=== PATIENT | male | born 1975 | race Caucasian/White ===

== ENCOUNTER 2017-04-10 20:07 | Emergency (ER) | payer OTHER ==
[2017-04-10 21:10] VITALS: RESP 16; TEMP 98.4; O2SAT 100
--- NOTE | 2017-04-10 21:44 | ED PDOC ---
HPI: General Adult Time Seen by Provider: 04/10/17 21:16 Chief Complaint (Nursing): Dizziness/Lightheaded Chief Complaint (Provider): Lightheadedness History Per: Patient History/Exam Limitations: no limitations Onset/Duration Of Symptoms: Hrs (3) Have you had recent travel within the past 21 days to any of the following countries: [place], [place], [place] or [place]?: No Additional Complaint(s): Pt reports generalized weakness, lightheadedness, cold feeling in both hands and feet X 3 hours, associated with nausea. Pt was cooking when symptoms began , no sick contacts at home. Denies fever, CP, SOB, vomiting, abdominal pain, focal weakness, paresthesias. Past Medical History Reviewed: Nursing Documentation, Vital Signs Vital Signs: Last Vital Signs Temp 98.4 F 04/10/17 21:07 Pulse 67 04/10/17 22:58 Resp 16 04/10/17 22:58 BP 123/93 H 04/10/17 22:58 Pulse Ox 100 04/13/17 08:46 - Medical History PMH: No Chronic Diseases - Family History Family History: States: Unknown Family Hx - Living Arrangements Living Arrangements: With Family - Social History Current smoker - smoking cessation education provided: No Alcohol: > 2 Drinks/Day - Home Medications Home Medications: Ambulatory Orders Medication Instructions Recorded Naproxen [Naprosyn] 500 mg PO BID PRN #15 tablet 04/11/17 - Allergies Allergies/Adverse Reactions: Allergies Allergy/AdvReac Type Severity Reaction Status Date / Time No Known Allergies Allergy Verified 04/10/17 21:06 Review of Systems Constitutional: Positive for: Weakness (Generalized). Negative for: Fever, Chills Eyes: Negative for: Vision Change Cardiovascular: Negative for: Chest Pain, Palpitations Respiratory: Negative for: Cough, Shortness of Breath Gastrointestinal: Positive for: Nausea. Negative for: Vomiting, Abdominal Pain , Diarrhea Genitourinary Male: Negative for: Dysuria, Hematuria Skin: Negative for: Rash, Lesions Neurological: Positive for: Dizziness. Negative for: Weakness (Focal), Numbness , Incoordination, Change in Speech, Confusion, Seizures, Altered Mental Status, Headache Physical Exam - Reviewed Nursing Documentation Reviewed: Yes Vital Signs Reviewed: Yes - Physical Exam Appears: Positive for: Well, No Acute Distress Head Exam: Positive for: ATRAUMATIC, NORMAL INSPECTION Skin: Positive for: Normal Color, Warm, Dry Eye Exam: Positive for: Normal appearance, EOMI, PERRL Cardiovascular/Chest: Positive for: Regular Rate, Rhythm Respiratory: Positive for: Normal Breath Sounds. 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 Negative for: Motor/Sensory Deficits, Aphasia, Facial Droop - Laboratory Results Result Diagrams: 04/10/17 22:46 04/10/17 22:46 - ECG Interpretation Of ECG: NSR @ 64, early repolarization. O2 Sat by Pulse Oximetry: 100 Pulse Ox Interpretation: Normal - Progress Re-evaluation Time: 00:07 Condition: Improved Medical Decision Making Medical Decision Makin yo male with lightheadedness and generalized weakness. - labs - EKG - IVF - Zofran Accession No. 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 no. Patient Name: ALTHEA GONZALEZ Pt. Address: [facility] #: [id number] Ordering Dr: Carmela ORTEGA,Kaleigh Weinstein Pt Phone: Order Location: [facility] : 1975 Male Age: 41 Order #: [id number] Reason for exam: Lightheadedness CT Scan HEAD W/O CONTRAST Exam Date: 04/10/17 This imaging exam was performed at [facility] EXAM: CT Head Without Intravenous Contrast CLINICAL HISTORY: 41 years old, male; Signs and symptoms; Dizziness; Additional info: Lightheadedness. Sent phy. Doc. TECHNIQUE: Axial computed tomography images of the head/brain without intravenous contrast. All CT scans at this facility use one or more dose reduction techniques, viz.: automated exposure control; ma/kV adjustment per patient size (including targeted exams where dose is matched to indication; i.e. head); or iterative reconstruction technique. Coronal and sagittal reformatted images were created and reviewed. COMPARISON: No relevant prior studies available. FINDINGS: Brain: Unremarkable. No hemorrhage. No significant white matter disease. No edema. Ventricles: Unremarkable. No ventriculomegaly. Bones/joints: Unremarkable. No acute fracture. Soft tissues: Unremarkable. Sinuses: Unremarkable as visualized. No acute sinusitis. Mastoid air cells: Unremarkable as visualized. No mastoid effusion. IMPRESSION: No evidence of an acute intracranial abnormality. Dictated By: April Cannon MD Dictated Date/Time: 04/10/172307 Signed By: April Lopez MD Date Signed: 2307 Transcribed By: KHUSHI Transcribe Date/Time : 04/10/172307 JH/TAWNYA REPEAT BP: 123/93, pt feels better. Disposition - Clinical Impression Clinical Impression: Lightheadedness - Disposition Referrals: Dequan Beckman MD [Staff Provider] - [facility] [Outside] Disposition: Routine/Home Disposition Time: 00:07 Condition: IMPROVED Additional Instructions: FOLLOW-UP WITH PMD WITHIN 2 DAYS FOR REEVALUATION. Prescriptions: Naproxen [Naprosyn] 500 mg PO BID PRN #15 tablet PRN Reason: Pain, Moderate (4-7) Instructions: Dizziness, Nonvertigo, (DC) Forms: [employer] (Portuguese)
[2017-04-10] MEDS ORDERED: Sodium Chloride 0.9% 1,000 ML IV STA (21:45)
[2017-04-10 22:52] LABS: BASO # 0.1 K/uL (0.0-0.2); BASO % 1.3 % (0.0-2.0); EOS # 0.2 K/uL (0.0-0.7); EOS % 1.8 % (0.0-4.0); HEMOGLOBIN 16.3 g/dL (12.0-18.0); LYMPH # 1.8 K/uL (1.0-4.3); LYMPH % 20.4 % (20.0-40.0); MEAN CELL VOLUME 84.4 fl (80.0-94.0); MEAN CORPUSCULAR HEMOGLOBIN 28.2 pg (27.0-31.0); MEAN CORPUSCULAR HGB CONC 33.4 g/dL (33.0-37.0); MEAN PLATELET VOLUME 7.1 fl (7.2-11.7); MONO # 0.7 K/uL (0.0-0.8); MONO % 7.8 % (0.0-10.0); NEUT % 68.7 % (50.0-75.0); NRBC % 0.1 % (0.0-0.0); RBC 5.78 Mil/uL (4.40-5.90); RED CELL DISTRIBUTION WIDTH 14.9 % (11.5-14.5); WHITE BLOOD COUNT 8.7 K/uL (4.8-10.8)
[2017-04-10 23:02] LABS: ALB/GLOB RATIO 1.3 (1.0-2.1); ALBUMIN 4.5 g/dL (3.5-5.0); ALT/SGPT 60 U/L (21-72); AST/SGOT 32 U/L (17-59); BLOOD UREA NITROGEN 11 mg/dl (9-20); CALCIUM 9.2 mg/dL (8.4-10.2); GFR AFRICAN-AMERICAN > 60; GFR NON-AFRICAN AMERICAN > 60
--- NOTE | 2017-04-10 23:08 | CT ---
EXAM: CT Head Without Intravenous Contrast CLINICAL HISTORY: 41 years old, male; Signs and symptoms; Dizziness; Additional info: Lightheadedness. Sent phy. Doc. TECHNIQUE: Axial computed tomography images of the head/brain without intravenous contrast. All CT scans at this facility use one or more dose reduction techniques, viz.: automated exposure control; ma/kV adjustment per patient size (including targeted exams where dose is matched to indication; i.e. head); or iterative reconstruction technique. Coronal and sagittal reformatted images were created and reviewed. COMPARISON: No relevant prior studies available. FINDINGS: Brain: Unremarkable. No hemorrhage. No significant white matter disease. No edema. Ventricles: Unremarkable. No ventriculomegaly. Bones/joints: Unremarkable. No acute fracture. Soft tissues: Unremarkable. Sinuses: Unremarkable as visualized. No acute sinusitis. Mastoid air cells: Unremarkable as visualized. No mastoid effusion. IMPRESSION: No evidence of an acute intracranial abnormality.
[2017-04-10 23:37] LABS: URINE BILIRUBIN NEGATIVE (NEGATIVE); URINE BLOOD NEGATIVE (NEGATIVE); URINE CLARITY CLEAR (Clear); URINE COLOR YELLOW (YELLOW); URINE GLUCOSE (UA) NEG (Normal); URINE LEUKOCYTE ESTERASE NEG Leu/uL (Negative); URINE NITRATE NEGATIVE (NEGATIVE); URINE PROTEIN NEGATIVE (NEGATIVE); URINE UROBILINOGEN 0.2-1.0 mg/dL (0.2-1.0)
[2017-04-10 23:40] LABS: BARBITURATES, UR NEGATIVE (NEGATIVE); BENZODIAZEPINES, UR NEGATIVE (NEGATIVE); OPIATES, UR NEGATIVE (NEGATIVE); PHENCYCLIDINE, UR NEGATIVE (NEGATIVE)
[2017-04-11 00:28] VITALS: BP 123/93; PULSE 67
--- NOTE | 2017-04-11 19:06 | CARD ---
APPROVED REPORT EKG Measurement Heart [id number] <Conclusion> Normal sinus rhythm Early repolarization Normal ECG
== END 2017-04-11 00:36 | disposition home or self-care (01) ==
LOC: H.ER 20:07
DX: R42 Dizziness and giddiness (principal)
CPT/HCPCS: 70450; 80053; 80320; 80324; 80345; 80346; 80349; 80353; 80358; 80361; 81003; 82948; 83992; 85025; 93005; 96360; 99284; J2405; J7040